=== PATIENT | male | born 1995 | race Caucasian/White ===

== ENCOUNTER 2018-11-05 13:18 | Emergency (ER) | payer MEDICAID, OTHER ==
[~2018-11-05] VITALS: Ht 170.2 cm; Wt 63.5 kg
[2018-11-05 13:23] VITALS: BP 123/84
--- NOTE | 2018-11-05 13:48 | NUR ---
Patient discharged to home in stable condition. Written and verbal after care instructions given. Patient verbalizes understanding of instruction.
== END 2018-11-05 13:49 | disposition home or self-care (01) ==
LOC: ER 13:22
DX: J06.9 Acute upper respiratory infection, unspecified (principal)

== ENCOUNTER 2022-03-04 10:52 | Emergency (ER) | payer OTHER ==
[~2022-03-04] VITALS: Ht 170.2 cm; Wt 65.8 kg
[2022-03-04 11:09] VITALS: BP 114/64
--- NOTE | 2022-03-04 11:15 | NUR ---
BIBS C/O RIGHT ANKLE PAIN AND SWELLING S/P HITTING ANKLE ON A POST WHILE PLAYING BASKETBALL YESTERDAY P/S 05/04 WHEN PUTTING WEIGHT. WILL CONTINUE TO MONITOR THE PATIENT.
[2022-03-04] MEDS ORDERED: IBUP-1955 PO (12:10)
--- NOTE | 2022-03-04 12:26 | NUR ---
Patient discharged to home in stable condition. Written and verbal after care instructions given. Patient verbalizes understanding of instruction.
== END 2022-03-04 12:29 | disposition home or self-care (01) ==
LOC: ER 10:58
DX: S93.401A Sprain of unspecified ligament of right ankle, initial encounter (principal); W22.8XXA Striking against or struck by other objects, initial encounter; Y93.89 Activity, other specified; Y92.89 Other specified places as the place of occurrence of the external cause; Y99.8 Other external cause status
CPT/HCPCS: 73610-TC